=== PATIENT | female | born 1955 | race Caucasian/White ===

== ENCOUNTER 2022-04-06 12:35 | Outpatient (CLI) | payer MEDICARE | END 2022-04-06 12:36 | disposition home or self-care (01) | LOC: CSHLAB 12:35 | PROVIDERS: ATTEND Internal Medicine Hematology & Oncology | DX: Z20.822 Contact with and (suspected) exposure to COVID-19 (principal); C83.31 Diffuse large B-cell lymphoma, lymph nodes of head, face, and neck | CPT/HCPCS: 87811 ==

== ENCOUNTER 2022-04-07 05:56 | Day surgery (SDC) | payer MEDICARE ==
[2022-04-06 13:19] VITALS: BMI 15.6
[2022-04-07] MEDS ORDERED: Bupivacaine 0.25% HCL 30 ML VIAL ONE (06:16)
[2022-04-07] MEDS ORDERED: EPINEPHrine 1 MG/ML AMP ONE (06:17)
[2022-04-07] MEDS ORDERED: Lidocaine 1% PF 5 ML VIAL ONE (07:02)
[2022-04-07] MEDS ORDERED: PROPOFOL 20 ML ONE (07:02)
[2022-04-07] MEDS ORDERED: Ondansetron PF 4 MG/2 ML Vial ONE (07:02)
[2022-04-07] MEDS ORDERED: ePHEDrine Sulfate 50 MG/10 ML VIAL ONE (07:22)
[2022-04-07] MEDS ORDERED: Acetaminophen 325 MG TAB PO PRN (07:58)
== END 2022-04-07 08:45 | disposition home or self-care (01) ==
LOC: CSHSDC 05:56
PROVIDERS: ATTEND Surgery
PROC: 0JH60XZ Insertion of Tunneled Vascular Access Device into Chest Subcutaneous Tissue and Fascia, Open Approach (ICD-10-PCS; principal; 2022-04-07)
DX: C83.31 Diffuse large B-cell lymphoma, lymph nodes of head, face, and neck (principal); M47.816 Spondylosis without myelopathy or radiculopathy, lumbar region; I10 Essential (primary) hypertension; E03.9 Hypothyroidism, unspecified; E78.5 Hyperlipidemia, unspecified; Z79.82 Long term (current) use of aspirin; Z79.899 Other long term (current) drug therapy; Z20.822 Contact with and (suspected) exposure to COVID-19
CPT/HCPCS: C1788; J0171; J1642; J2405; J2704; S0020